=== PATIENT | male | born 1975 | race African-American/Black ===

== ENCOUNTER 2024-10-22 03:18 | Emergency (ER) | payer MEDICAID, OTHER ==
[~2024-10-22] VITALS: Ht 162.6 cm; Wt 74.0 kg
[2024-10-22 03:25] VITALS: O2SAT 97
[2024-10-22] MEDS: ACETAMINOPHEN 325MG TABLET PO ONE (04:01)
[2024-10-22] MEDS: LIDOCAINE 5% PATCH TOP ONE (04:01)
[2024-10-22] MEDS ORDERED: ACET-2708 MT (06:05)
[2024-10-22 06:33] VITALS: BP 156/83; PULSE 85; RESP 20; TEMP 36.8; O2SAT 99
== END 2024-10-22 06:35 | disposition home or self-care (01) ==
LOC: ER 03:18
DX: M25.512 Pain in left shoulder (principal); I69.349 Monoplegia of lower limb following cerebral infarction affecting unspecified side; I10 Essential (primary) hypertension; E11.9 Type 2 diabetes mellitus without complications; Z88.0 Allergy status to penicillin; W01.0XXA Fall on same level from slipping, tripping and stumbling without subsequent striking against object, initial encounter; Y93.89 Activity, other specified; Y92.89 Other specified places as the place of occurrence of the external cause; Y99.8 Other external cause status
CPT/HCPCS: 73030; 99283